=== PATIENT | male | born 1990 | race Caucasian/White ===

== ENCOUNTER 2019-07-22 17:07 | Emergency (ER) | payer OTHER ==
[~2019-07-22] VITALS: Ht 165.1 cm; Wt 65.8 kg
--- NOTE | 2019-07-22 17:10 | NUR ---
ED Nurse Note: Patient brought in by ambulance for medical clearance. Per EMS, patient swallowed a pea size of Fentanyl bag. Patient states he does not want to hurt himself or others. Patient uses IV drugs and multiple, old needle tracks noted on BUE. Placed all his belongings into psych cabinet. Patient states he swallowed the bag as he did not want to get arrested. Patient awake, alert, oriented x 4. Regular, unlabored breathing noted. Patient is cooperative at this time.
[2019-07-22] MEDS ORDERED: Metoclopramide 10mg/2ml Inj IVP ONE (17:15)
[2019-07-22] MEDS ORDERED: Polyethylene Glycol 238gm bottle ORAL ONE (17:15)
--- NOTE | 2019-07-22 17:16 | Emergency Room Report ---
History of Present Illness General Chief Complaint: Overdose Source: Patient, EMS Present Illness HPI 29-year-old male history of heroin abuse, IV drug use, presents with swallowed foreign body of packet of fentanyl patient was in the skilled nursing cell, swallowed it prior to being searched, he states the packet he swallowed was pea-sized, contains about 1 to 2 days worth of fentanyl that he would use over the course of 1 full day, currently denies any chest pain shortness of breath no respiratory depression, no Chelsey relieving factors severity is moderate, constant patient was brought in by police as well as [employer] for evaluation Allergies: Coded Allergies: No Known Allergies (Unverified , 07/22/19) Patient History Past Medical History: see triage record Reviewed Nursing Documentation: PMH: Agreed; PSxH: Agreed Nursing Documentation-PMH Past Medical History: No Stated History Review of Systems All Other Systems: negative except mentioned in HPI Physical Exam Vital Signs Date Time Temp Pulse Resp B/P (MAP) Pulse Ox O2 Delivery O2 Flow Rate FiO2 07/22/19 17:04 97.0 62 20 116/78 (91) 100 Room Air Sp02 EP Interpretation: reviewed, normal General Appearance: well appearing, no apparent distress, alert Head: normocephalic, atraumatic Eyes: bilateral eye PERRL, bilateral eye EOMI ENT: uvula midline, moist mucus membranes Neck: supple, thyroid normal, supple/symm/no masses Respiratory: lungs clear, no respiratory distress, no retraction, no accessory muscle use Cardiovascular #1: normal peripheral pulses, regular rate, rhythm, no edema, no gallop, no murmur Gastrointestinal: non tender, soft, no guarding, no rebound Musculoskeletal: normal inspection Neurologic: alert, oriented x3 Psychiatric: mood/affect normal Skin: warm/dry, other - Multiple track rosales Medical Decision Making Diagnostic Impression: Primary Impression: Foreign body, swallowed Qualified Codes: T18.9XXA - Foreign body of alimentary tract, part unspecified , initial encounter Additional Impression: Drug overdose Qualified Codes: T50.901A - Poisoning by unspecified drugs, medicaments and biological substances, accidental (unintentional), initial encounter ER Course 29-year-old male swallowed a small amount of fentanyl however strength is unknown he states the fentanyl in the plastic bag he swallowed generally last him about 1 to 2 days, he normally breaks it apart and then take some KUB is currently negative for foreign body but given how small the object is remains nondiagnostic We will admit patient to step down for continued management Patient given miralax. There is always a risk of perforation so patient will require inpatient management Patient admitted to stepdown under Dr. Londono Group with Dr. Parrish Reevaluation 60 1 PM, patient was about to be admitted to the stepdown unit patient wants to leave AGAINST MEDICAL ADVICE he is aware of the pack of he will on the street The patient has requested to leave the ED against medical advice. The patient reason(s) for leaving include, but are not limited to, the following: "I want to leave." I believe this patient is of sound mind and competent to refuse medical care. The patient is responding and asking questions appropriately. The patient is oriented to person, place and time. The patient is not psychotic, delusional, suicidal, homicidal or hallucinating. The patient demonstrates a normal mental capacity to make decisions regarding their healthcare. The patient is clinically sober and does not appear to be under the influence of any illicit drugs at this time. The patient has been advised of the risks, in layman terms, of leaving AMA which include, but are not limited to , coma, permanent disability, loss of current lifestyle, delay in diagnosis. Alternatives have been offered - the patient remains steadfast in their wish to leave. The patient has been advised that should they change their mind they are welcome to return to this hospital, or any other, at any time. The patient understands that in no way does an AMA discharge mean that I do not want them to have the best medical care available. To this end, I have provided appropriate prescriptions, referrals, and discharge instructions. The patient did sign AMA paperwork. The above discussion was witnessed by another member of staff. Laboratory Tests Test 07/22/19 18:15 White Blood Count 9.0 K/UL (4.8-10.8) Red Blood Count 4.51 M/UL (4.70-6.10) L Hemoglobin 12.6 G/DL (14.2-18.0) L Hematocrit 37.9 % (42.0-52.0) L Mean Corpuscular Volume 84 FL (80-99) Mean Corpuscular Hemoglobin 27.9 PG (27.0-31.0) Mean Corpuscular Hemoglobin Concent 33.2 G/DL (32.0-36.0) Red Cell Distribution Width 12.1 % (11.6-14.8) Platelet Count 346 K/UL (150-450) Mean Platelet Volume 5.6 FL (6.5-10.1) L Neutrophils (%) (Auto) 73.0 % (45.0-75.0) Lymphocytes (%) (Auto) 12.9 % (20.0-45.0) L Monocytes (%) (Auto) 9.5 % (1.0-10.0) Eosinophils (%) (Auto) 4.0 % (0.0-3.0) H Basophils (%) (Auto) 0.5 % (0.0-2.0) Prothrombin Time 11.2 SEC (9.30-11.50) Prothrombin Time INR 1.1 (0.9-1.1) PTT 30 SEC (23-33) Sodium Level Pending Potassium Level Pending Chloride Level Pending Carbon Dioxide Level Pending Blood Urea Nitrogen Pending Creatinine Pending Estimate Glomerular Filtration Rate Pending Glucose Level Pending Calcium Level Pending Total Bilirubin Pending Aspartate Amino Transferase (AST) Pending Alanine Aminotransferase (ALT) Pending Alkaline Phosphatase Pending Total Protein Pending Albumin Pending Globulin Pending Other X-Ray Diagnostic Results Other X-Ray Diagnostic Results : # of Views/Limited Vs Complete: 2 View Indication: Other - foreign body EP Interpretation: Yes Interpretation: nonspecific bowel gas Impression: No acute disease Electronically Signed by: Cheikh Bentley MD CT/MRI/US Diagnostic Results CT/MRI/US Diagnostic Results : Impression Final Report EXAM: CT Chest Without Intravenous Contrast CLINICAL HISTORY: PAIN TECHNIQUE: Axial computed tomography images of the chest without intravenous contrast. CTDI is 8.9 mGy and DLP is 715.8 mGy-cm. One or more of the following dose reduction techniques were used: automated exposure control, adjustment of the mA and/or kV according to patient size, use of iterative reconstruction technique. COMPARISON: No relevant prior studies available. FINDINGS: Lungs: No mass. No consolidation. Pleural space: Unremarkable. No pneumothorax. No effusion. Heart: No cardiomegaly. No pericardial effusion. Bones/joints: Cervical fusion. Old/healing rib fractures. Possibly old sternal fracture. Soft tissues: Unremarkable. Vasculature: Unremarkable. No thoracic aortic aneurysm. Lymph nodes: No enlarged lymph nodes. IMPRESSION: No acute findings. EXAM: CT Abdomen and Pelvis Without Intravenous Contrast CLINICAL HISTORY: PAIN TECHNIQUE: Axial computed tomography images of the abdomen and pelvis without intravenous contrast. CTDI is 8.9 mGy and DLP is 715.8 mGy-cm. One or more of the following dose reduction techniques were used: automated exposure control, adjustment of the mA and/or kV according to patient size, use of iterative reconstruction technique. COMPARISON: No relevant prior studies available. FINDINGS: Limitations: Limited assessment without any contrast. Lung bases: Unremarkable. ABDOMEN: Liver: Unremarkable Gallbladder and bile ducts: No calcified stones. No ductal dilation. Pancreas: Unremarkable. Spleen: Unremarkable. Adrenals: Unremarkable. Kidneys and ureters: No renal calculi or obstructive changes. Stomach and bowel: Gastric distention. Mild gaseous distention of the colon. PELVIS: Appendix: Appendix not identified. Bladder: Unremarkable. Reproductive: Unremarkable. ABDOMEN and PELVIS: Intraperitoneal space: Unremarkable. Bones/joints: Spondylolysis at L5 Soft tissues: Unremarkable. Vasculature: Unremarkable. No abdominal aortic aneurysm. Lymph nodes: No enlarged lymph nodes. IMPRESSION: Appendix not identified. Radiologist: Bridget Davenport M.D. Electronically Signed: 07/22/19 19:43 Study ready at 18:44 and initial results transmitted at 19:43 Last Vital Signs Date Time Temp Pulse Resp B/P (MAP) Pulse Ox O2 Delivery O2 Flow Rate FiO2 07/22/19 17:04 97.0 62 20 116/78 (91) 100 Room Air Disposition: AGAINST MEDICAL ADVICE Condition: Stable Scripts No Active Prescriptions or Reported Meds Referrals: [facility] Dharmesh Bardales [facility] Patient Instructions: Opioid Use Disorder Additional Instructions: The patient was provided with discharge instructions, notified to follow-up with a primary care doctor and or specialist in the next 24-48 hours, and to return to the ED if they have worsening of their symptoms. Please note that this report is being documented using DRAGON technology. This can lead to erroneous entry secondary to incorrect interpretation by the dictating instrument. Cheikh Bentley MD Jul 22, 2019 17:16
--- NOTE | 2019-07-22 17:45 | NUR ---
ED Nurse Note: RN attempted to insert IV to RUE x 2, but unsuccessful at this time. Patient tolerated the procedure without difficulty. Applied clean, dry dressing.
[2019-07-22 17:59] VITALS: BP 110/60
[2019-07-22] MEDS ORDERED: Miralax 17gm pkt ORAL PRN (18:00)
[2019-07-22] MEDS ORDERED: Albuterol/Ipratropium 3ml neb HHN SCH (18:00)
--- NOTE | 2019-07-22 18:00 | NUR ---
ED Nurse Note: CALLED LAB FOR BLOOD DRAW. SPOKE TO TECH. DAVID
--- NOTE | 2019-07-22 18:06 | History & Physical ---
History and Physical History & Physicial 29 year old male, who ingested a fentanyl patch and is in custody of [employer]. Being admitted to step down for close observation. Will monitor for signs of opioid toxicity such as central nervous system depression, hypoventilation, miosis, and decreased bowl sounds. Frequent neuro checks naloxone as needed miralax case d/w Dr. Cheikh Bentley Full H&P to come [place] Parrish M.D. Jul 22, 2019 18:06
--- NOTE | 2019-07-22 18:19 | Diagnostic Imaging Report ---
EXAM: XR Abdomen, 1 View CLINICAL HISTORY: PAIN TECHNIQUE: Frontal supine view of the abdomen/pelvis. COMPARISON: No relevant prior studies available. FINDINGS: Gastrointestinal tract: Gaseous distention of the colon. Bones/joints: No acute fracture. IMPRESSION: Gaseous distention of the colon.
[2019-07-22 18:31] LABS: BASOPHILS % (AUTO) 0.5 % (0.0-2.0); HEMATOCRIT 37.9 % (42.0-52.0); HEMOGLOBIN 12.6 G/DL (14.2-18.0); LYMPHOCYTES % (AUTO) 12.9 % (20.0-45.0); MEAN CORPUSCULAR VOLUME 84 FL (80-99); MONOCYTES % (AUTO) 9.5 % (1.0-10.0); PLATELET COUNT 346 K/UL (150-450); RED BLOOD COUNT 4.51 M/UL (4.70-6.10); RED CELL DISTRIBUTION WIDTH 12.1 % (11.6-14.8)
[2019-07-22 18:37] LABS: INR 1.1 (0.9-1.1)
[2019-07-22 18:52] VITALS: BP 114/70
--- NOTE | 2019-07-22 18:52 | NUR ---
Note undone in EDM - 07/22/19 at 1937 by [facility] ED Nurse Note: Patient awake, alert, oriented x 4. Patient is calm and cooperative. Patient signed AMA form. Offered community resources (correction, clinics and bus tap card), but patient refused. Patient declined to state where he will go after discharge. Patient [place] '[place], [place]'. Patient verbalized understanding of leaving the hospital against medical advice at this time and patient does not request medications, equipment or placement. Patient signed patient consent in the medical record for patient destination upon discharge. All medical devices such as IV and ID band were removed. Patient ambulated out with all personal belongings with steady gait.
--- NOTE | 2019-07-22 18:52 | NUR ---
ER DISCHARGE NOTE: Patient awake, alert, oriented x 4. Patient is calm and cooperative. Patient states he feels better and wants to leave the hospital. Dr. Bentley notified. ERMD at bedside and explained the risk of leaving the hospital including worsening of symptoms, persmannet disability and dealth and also benefts included diagnosis and treatment of illness. Patient signed AMA form. Patient verbalized understanding of the risk. Offered community resources (custodial, clinics and bus tap card), but patient refused. Patient declined to state where he will go after discharge. Patient states '[place], [place]'. Patient verbalized understanding of leaving the hospital against medical advice at this time and patient does not request medications, equipment or placement. Patient signed patient consent in the medical record for patient destination upon discharge. All medical devices such as IV and ID band were removed. Patient ambulated out with all personal belongings with steady gait.
[2019-07-22 19:14] LABS: ANION GAP 5 mmol/L (5-15); BLOOD UREA NITROGEN 10 mg/dL (7-18); CALCIUM 8.3 MG/DL (8.5-10.1); CARBON DIOXIDE 32 MMOL/L (21-32); CHLORIDE 104 MMOL/L (98-107); CREATININE 0.6 MG/DL (0.55-1.30); POTASSIUM 3.6 MMOL/L (3.5-5.1); SODIUM 141 MMOL/L (136-145)
[2019-07-22 19:19] LABS: ALANINE AMINOTRANSFERASE 233 U/L (12-78); ALBUMIN 3.2 G/DL (3.4-5.0); ALBUMIN/GLOBULIN RATIO 0.9 (1.0-2.7); ALKALINE PHOSPHATASE 157 U/L (46-116); ASPARTATE AMINO TRANSFERASE 205 U/L (15-37); BILIRUBIN,TOTAL 0.8 MG/DL (0.2-1.0)
--- NOTE | 2019-07-22 19:45 | Diagnostic Imaging Report ---
EXAM: CT Chest Without Intravenous Contrast CLINICAL HISTORY: PAIN TECHNIQUE: Axial computed tomography images of the chest without intravenous contrast. CTDI is 8.9 mGy and DLP is 715.8 mGy-cm. One or more of the following dose reduction techniques were used: automated exposure control, adjustment of the mA and/or kV according to patient size, use of iterative reconstruction technique. COMPARISON: No relevant prior studies available. FINDINGS: Lungs: No mass. No consolidation. Pleural space: Unremarkable. No pneumothorax. No effusion. Heart: No cardiomegaly. No pericardial effusion. Bones/joints: Cervical fusion. Old/healing rib fractures. Possibly old sternal fracture. Soft tissues: Unremarkable. Vasculature: Unremarkable. No thoracic aortic aneurysm. Lymph nodes: No enlarged lymph nodes. IMPRESSION: No acute findings. EXAM: CT Abdomen and Pelvis Without Intravenous Contrast CLINICAL HISTORY: PAIN TECHNIQUE: Axial computed tomography images of the abdomen and pelvis without intravenous contrast. CTDI is 8.9 mGy and DLP is 715.8 mGy-cm. One or more of the following dose reduction techniques were used: automated exposure control, adjustment of the mA and/or kV according to patient size, use of iterative reconstruction technique. COMPARISON: No relevant prior studies available. FINDINGS: Limitations: Limited assessment without any contrast. Lung bases: Unremarkable. ABDOMEN: Liver: Unremarkable Gallbladder and bile ducts: No calcified stones. No ductal dilation. Pancreas: Unremarkable. Spleen: Unremarkable. Adrenals: Unremarkable. Kidneys and ureters: No renal calculi or obstructive changes. Stomach and bowel: Gastric distention. Mild gaseous distention of the colon. PELVIS: Appendix: Appendix not identified. Bladder: Unremarkable. Reproductive: Unremarkable. ABDOMEN and PELVIS: Intraperitoneal space: Unremarkable. Bones/joints: Spondylolysis at L5 Soft tissues: Unremarkable. Vasculature: Unremarkable. No abdominal aortic aneurysm. Lymph nodes: No enlarged lymph nodes. IMPRESSION: Appendix not identified.
== END 2019-07-22 18:52 | disposition left against medical advice (07) ==
LOC: EDBD 17:07 → EMR 17:18 → EDBEDREQ 17:19 → EMR 18:52 → CANBEDREQ 19:04
DX: T81.9XXA Unspecified complication of procedure, initial encounter (principal); T40.4X1A Poisoning by other synthetic narcotics, accidental (unintentional), initial encounter; Y92.143 Cell of prison as the place of occurrence of the external cause; Z53.29 Procedure and treatment not carried out because of patient's decision for other reasons
CPT/HCPCS: 36415; 71250; 74018; 74176; 80053; 85025; 85610; 85730; 96365; 96375; 99284; J2765